=== PATIENT | male | born 1985 | race Two or more races ===

== ENCOUNTER 2019-10-28 19:16 | Emergency (ER) | payer OTHER ==
[~2019-10-28] VITALS: Ht 172.7 cm; Wt 104.5 kg
[2019-10-28] MEDS ORDERED: SULF1TAB42 PO (19:53)
[2019-10-28 20:13] VITALS: BP 139/80
[2019-10-28] MEDS ORDERED: PERTUSS(ACELL),DIPH,TET VAC/PF 0.5 ML VIAL IM ONE (20:15)
== END 2019-10-28 20:36 | disposition home or self-care (01) ==
LOC: EMS 19:18
DX: N48.89 Other specified disorders of penis (principal); Z79.899 Other long term (current) drug therapy

== ENCOUNTER 2025-03-08 14:52 | Emergency (ER) | payer OTHER ==
[~2025-03-08] VITALS: Ht 170.2 cm; Wt 109.0 kg
[~2025-03-08 14:52] MED LIST: SULF1TAB42 PO
[2025-03-08] MEDS ORDERED: IBUP-1492 PO (16:52)
[2025-03-08 17:02] VITALS: BP 147/99; PULSE 72; RESP 18; TEMP 98.4; O2SAT 100
== END 2025-03-08 17:44 | disposition home or self-care (01) ==
LOC: EMS 14:52
DX: M25.511 Pain in right shoulder (principal); Z98.890 Other specified postprocedural states; W01.0XXA Fall on same level from slipping, tripping and stumbling without subsequent striking against object, initial encounter; Y93.89 Activity, other specified; Y92.89 Other specified places as the place of occurrence of the external cause; Y99.8 Other external cause status
CPT/HCPCS: 99283

== ENCOUNTER 2025-03-21 09:16 | Emergency (ER) | payer MEDICAID, OTHER ==
[~2025-03-21] VITALS: Ht 175.3 cm; Wt 104.5 kg
[~2025-03-21 09:16] MED LIST changes: +IBUP-1492 PO; -SULF1TAB42 PO
[2025-03-21 09:21] VITALS: BP 150/100; PULSE 70; RESP 18; TEMP 98.4; O2SAT 97
[2025-03-21] MEDS ORDERED: IBUP-1492 PO (12:43)
[2025-03-21] MEDS ORDERED: DOXY-354 PO (12:43)
== END 2025-03-21 12:50 | disposition home or self-care (01) ==
LOC: EMS 09:16
DX: L73.2 Hidradenitis suppurativa (principal); L73.9 Follicular disorder, unspecified; Z98.890 Other specified postprocedural states; Z79.899 Other long term (current) drug therapy
CPT/HCPCS: 99283; Z7502